=== PATIENT | male | born 1990 | race African-American/Black ===

== ENCOUNTER 2019-11-04 06:16 | Emergency (ER) | payer OTHER ==
[~2019-11-04] VITALS: Ht 177.8 cm; Wt 77.1 kg
[~2019-11-04 06:16] MED LIST: IBUPROFEN 800800 MG PO; NORCO 5-325 TA1 EACH PO
[2019-11-04 06:42] LABS: INFLUENZA A ANTIGEN Positive (Negative); INFLUENZA B ANTIGEN Negative (Negative)
[2019-11-04] MEDS ORDERED: VENTOLIN HFA 1818 GM INH (07:27)
[2019-11-04] MEDS ORDERED: PREDNISONE 20 M20 M1 PO (07:27)
[2019-11-04] MEDS ORDERED: TAMIFLU75 MG PO (07:27)
[2019-11-04 08:07] VITALS: BP 110/63
== END 2019-11-04 08:09 | disposition home or self-care (01) ==
LOC: M.ERS 06:16
PROVIDERS: Personal Emergency Response Attendant
DX: J10.1 Influenza due to other identified influenza virus with other respiratory manifestations (principal)